=== PATIENT | male | born 1965 | race Caucasian/White ===

== ENCOUNTER 2020-11-30 08:59 | Emergency (ER) | payer OTHER ==
--- NOTE | 2020-11-30 10:01 | EDM.PDOC ---
ED HPI GENERAL MEDICAL PROBLEM - General Chief Complaint: Laceration Stated Complaint: CUT FINGER ON KNIFE Time Seen by Provider: 11/30/20 09:40 Source of Information: Reports: Patient History Limitations: Reports: No Limitations - History of Present Illness INITIAL COMMENTS - FREE TEXT/NARRATIVE: This is a 55-year-old male present concerns of a finger laceration. He reports that he cut his right pinky finger with a pocket knife yesterday evening and she is cutting some meat. He washed out the finger, reports it was bleeding quite a bit. He now presents nearly 13 hours later looking for guidance on wound cares. Right Finger-Little Pain Score (Numeric/FACES): 6 - Related Data Allergies Allergy/AdvReac Type Severity Reaction Status Date / Time No Known Allergies Allergy Verified 11/30/20 09:51 Home Meds: Home Meds Ibuprofen [Motrin] 600 mg PO DAILY 11/30/20 [History] Omeprazole 20 mg PO DAILY 11/30/20 [History] Social & Family History - Tobacco Use Tobacco Use Status *Q: Heavy Tobacco User Years of Tobacco use: 41 Packs/Tins Daily: 1 - Caffeine Use Caffeine Use: Reports: Coffee, Energy Drinks - Alcohol Use Days Per Week of Alcohol Use: 1 Number of Drinks Per Day: 4 Total Drinks Per Week: 4 - Recreational Drug Use Recreational Drug Use: No ED ROS GENERAL - Review of Systems Review Of Systems: See Below Constitutional: Reports: No Symptoms HEENT: Reports: No Symptoms Respiratory: Reports: No Symptoms Cardiovascular: Reports: No Symptoms Endocrine: Reports: No Symptoms GI/Abdominal: Reports: No Symptoms : Reports: No Symptoms Musculoskeletal: Reports: No Symptoms Skin: Reports: Other (Laceration) Neurological: Reports: No Symptoms Psychiatric: Reports: No Symptoms Hematologic/Lymphatic: Reports: No Symptoms Immunologic: Reports: No Symptoms ED EXAM, SKIN/RASH Exam: See Below Exam Limited By: No Limitations General Appearance: Alert, No Apparent Distress Ears: Normal External Exam Nose: Normal Inspection Throat/Mouth: Normal Inspection Head: Atraumatic, Normocephalic Neck: Normal Inspection Respiratory/Chest: No Respiratory Distress Cardiovascular: Regular Rate, Rhythm GI/Abdominal: No Distention Extremities: Other (Laceration, approximately 1.5 cm over the right medial pinky finger. Does not violate the skin. Distal CSM is intact. No foreign body.) Neurological: Alert, Oriented Psychiatric: Normal Affect, Normal Mood Skin: Warm, Dry Course - Vital Signs Last Recorded V/S: Last Vital Signs Temp 35.9 C L 11/30/20 09:48 Pulse 88 11/30/20 09:48 Resp 18 11/30/20 09:48 BP 180/90 H 11/30/20 09:48 Pulse Ox 96 11/30/20 09:48 - Orders/Labs/Meds Orders: Active Orders 24 hr Category Date Time Status Vaccines to be Administered [RC] PER UNIT ROUTINE Care 11/30/20 09:55 Ordered Diphth,Pertuss(Acell),Tet Vac [Boostrix] Med 11/30/20 09:55 Once 0.5 ml IM .ONCE ONE - Re-Assessments/Exams Free Text/Narrative Re-Assessment/Exam: 11/30/20 09:58 55-year presents with concerns of a right pinky laceration. He has a laceration, not through the skin, on the medial right pinky. The wound is clean, there is no tendon involvement, he is neurovascularly intact distally. He is now approximately 13 hours post injury, too late for primary closure. Plan is to place bacitracin ointment dressed the wound placed in a splint and discussed healing by secondary intention. He was discharged with return precautions Departure - Departure Time of Disposition: 10:00 Disposition: Home, Self-Care 01 Clinical Impression: Finger laceration Qualifiers: Encounter type: initial encounter Finger: little finger Damage to nail status: without damage Foreign body presence: without foreign body Laterality: right Qualified Code(s): S61.216A - Laceration without foreign body of right little finger without damage to nail, initial encounter - Discharge Information Instructions: Laceration Care, Adult Referrals: PCP,None [Primary Care Provider] - Additional Instructions: As discussed, it is too late to close your laceration with stitches. Please continue to apply the antibiotic ointment to the wound for the next several days. Keep the pinky in the splint to encourage healing as well, would leave this in place for about 5 days. If you notice increasing pain, discharge, these may be signs of infection he should see a physician. Thank you for trusting us care for you today. Sepsis Event Note (ED) - Evaluation Sepsis Screening Result: No Definite Risk - Focused Exam Vital Signs: Vital Signs Temp Pulse Resp BP Pulse Ox 11/30/20 09:48 35.9 C L 88 18 180/90 H 96 11/30/20 09:23 35.9 C L 88 18 180/90 H 96 - My Orders Last 24 Hours: My Active Orders 11/30/20 09:55 Vaccines to be Administered [RC] PER UNIT ROUTINE Diphth,Pertuss(Acell),Tet Vac [Boostrix] 0.5 ml IM .ONCE ONE - Assessment/Plan Last 24 Hours: My Active Orders 11/30/20 09:55 Vaccines to be Administered [RC] PER UNIT ROUTINE Diphth,Pertuss(Acell),Tet Vac [Boostrix] 0.5 ml IM .ONCE ONE
[2020-11-30] MEDS: Diphtheria,Pertussis(Acell),Tetanus Vaccine 0.5 ML Syringe IM ONE (10:15)
[2020-11-30] MEDS: Bacitracin Oint 1 GM U/D Packet ONE (10:16)
[2020-11-30] MEDS: Bacitracin Oint 1 GM U/D Packet TOP ONE (10:16)
== END 2020-11-30 10:24 | disposition home or self-care (01) ==
LOC: JP.ED 08:59
DX: S61.216A Laceration without foreign body of right little finger without damage to nail, initial encounter (principal); Z72.0 Tobacco use; Z23 Encounter for immunization; W26.0XXA Contact with knife, initial encounter
CPT/HCPCS: 90471; 90715; 99282; 99282-25